=== PATIENT | female | born 2000 | race Caucasian/White ===

== ENCOUNTER 2023-04-15 15:44 | Emergency (ER) | payer BC, SELFPAY ==
[2023-04-15 15:48] VITALS: BP 132/80
[2023-04-15 18:33] LABS: % Basophils 0.5 % (0-2); % Eosinophils 0.5 % (0-6); % Immature Granulocytes 0.2 % (0-0.5); % Lymphocytes 30.7 % (20.5-51.1); % Monocytes 5.6 % (1.7-9.3); % Neutrophils 62.5 % (42.2-75.2); Absolute Basophils 0.1 10^3/uL (0-0.2); Absolute Eosinophils 0.1 10^3/uL (0-0.7); Absolute Lymphocytes 4.1 10^3/uL (1.2-3.4); Absolute Monocytes 0.7 10^3/uL (0.1-0.6); Absolute Neutrophils 8.3 10^3/uL (1.4-6.5); Hematocrit 36.7 % (37.0-47.0); Hemoglobin 12.9 g/dL (12.0-16.0); Mean Corp Hgb Conc. 35.1 g/dL (33.0-37.0); Mean Corpuscular Hgb 30.6 pg (27.0-31.0); Mean Corpuscular Volume 87.2 fL (81.0-99.0); Mean Platelet Volume 9.6 fL (7.4-10.4); Nucleated Red Blood Cells % 0 %; Platelet Count 414 10^3/uL (130-400); Red Blood Cell Count 4.21 10^6/uL (4.20-5.40); Red Cell Dist. Width 13.1 % (11.5-14.5); White Blood Cell Count 13.2 10^3/uL (4.8-10.8)
[2023-04-15 18:43] LABS: HCG, Serum Qualitative Screen Negative
[2023-04-15 18:45] LABS: Albumin 4.4 g/dl (3.5-5.0); Chloride 102 mmol/L (98-107); Potassium 4.1 mmol/L (3.5-5.1); Sodium 134 mmol/L (135-145)
[2023-04-15 18:55] VITALS: BP 125/86
[2023-04-15 18:56] LABS: ALT (SGPT) 24 U/L (0-35); AST (SGOT) 39 U/L (14-36); Alkaline Phosphatase 110 U/L (38-126); Blood Urea Nitrogen 5 mg/dl (7-17); Calcium 9.8 mg/dl (8.4-10.2); Carbon Dioxide 22 mmol/L (22-30); Glucose 84 mg/dl (70-99); Total Bilirubin 0.5 mg/dl (0.2-1.3); Total Protein 7.6 g/dl (6.3-8.2); eGFR > 60.00
[2023-04-15 19:32] LABS: Urine Albumin Negative (Neg - Trace); Urine Bilirubin Negative (Negative); Urine Character Clear (Clear); Urine Color Yellow; Urine Glucose Negative (Negative); Urine Ketone Negative (Negative); Urine Leukocyte 1+ (Negative); Urine Nitrite Negative (Negative); Urine Occult Blood Negative (Negative); Urine Specific Gravity 1.015 (<1.030); Urine Urobilinogen Negative (Neg - 1+)
[2023-04-15 19:41] LABS: Urine Red Blood Cell None Seen /HPF (0-2); Urine Squamous Cell >30 /LPF (Few)
[2023-04-15] MEDS: ADACEL 0.5 ML IM (21:27)
--- NOTE | 2023-04-15 21:41 | ED.GENMED ---
History of Present Illness
General
Chief Complaint: Musculo-Skeletal Complaint
Source: patient
Exam Limitations: none
Time Seen by Provider: 04/15/23 17:10
Travel History
Have you had any contact with someone who has COVID-19?: No
Do you have any symptoms of coronavirus? Fever > 100 degrees, chills, cough, shortness of breath, sore throat, loss of taste or smell, muscle aches, or headache?: No
History of Present Illness
History of Present Illness:
Patient was working with horse when it reared up. Hoof hit her on back of head and on rigt side of abdomen. Incident occurred today. Sustained a small abrasion to scalp, bruising to right abd.
Past History
Past History
ED Past Medical History: None
ED Past Surgical History: None
Review of Systems
Review of Systems
Allergies reviewed?: Yes
All Other Systems: ROS reviewed and negative except as documented in HPI and ROS
Constitutional: Reports no symptoms
EENT: Reports no symptoms
Respiratory: Reports no symptoms
Cardiac: Reports no symptoms
ABD/GI: Reports other (bruising right ant abdominal wall)
: Reports no symptoms
Musculoskeletal: Reports no symptoms
Skin: Reports other (abrasion right occipital scalp)
Neurological: Reports no symptoms
Psychiatric: Reports no symptoms
Phy Exam
General Physical Exam
General Presentation: well appearing and no apparent distress
General age: appears stated age
General Skin: warm and dry
General Habitus: normal
Pulmonary Exam
Pulmonary Exam: no respiratory distress and chest non tender
Gastrointestinal Exam
Gastrointestinal Exam: normal bowel sounds, soft, no organomegaly, no pulsatile mass, non distended and no cva tenderness
Palpation: left upper quadrant: Minimal tenderness, left lower quadrant: No tenderness, right upper quadrant: No tenderness and right lower quadrant: No tenderness
Deann Coma Scale
Eye Opening: Spontaneous
Verbal Response: Oriented
Motor Response: Obeys Commands
GCS Total Score: 15
Musculoskeletal Exam
Musculoskeletal Exam: full ROM and neuro vasc intact
Skin Exam
Skin Exam: normal color and warm/dry
Psychiatric Exam
Psychiatric Exam: normal mood/affect
Course
Orders/Labs/Results
Orders:
Orders
04/15/23 17:55
CT Abd/pel W Iv Cont (trauma) Urgent
Comment:
Reason For Exam: kicked by horse right abd.
Test Result ONCE
04/15/23 18:13
Complete Blood Count/With Diff Urgent
Comprehensive Metabolic Panel Urgent
HCG, Serum Qualitative Screen Urgent
04/15/23 19:16
Urinalysis Urgent
Date Specimen was Collected: 04/15/23
Time Specimen was Collected: 19:11
Urine Microscopic Urgent
Date Specimen was Collected: 04/15/23
Time Specimen was Collected: 19:11
04/15/23 21:21
Tetanus/Diphth/Acelpertussis [Adacel] 0.5 ml IM .ONCE ONE
Abnormal Lab Results
04/15/23 04/15/23
18:13 19:16
WBC 13.2 H 10^3/uL
(4.8-10.8)
Hct 36.7 L %
(37.0-47.0)
Plt Count 414 H 10^3/uL
(130-400)
Absolute Neuts (auto) 8.3 H 10^3/uL
(1.4-6.5)
Absolute Lymphs (auto) 4.1 H 10^3/uL
(1.2-3.4)
Absolute Monos (auto) 0.7 H 10^3/uL
(0.1-0.6)
Sodium 134 L mmol/L
(135-145)
BUN 5 L mg/dl
(7-17)
Creatinine 0.4 L mg/dL
(0.6-1.0)
AST 39 H U/L
(14-36)
Ur Leukocyte Esterase 1+ A
(Negative)
Urine WBC 6-10 A /HPF
(0-5)
04/15/23 18:13
04/15/23 18:13
Vital Signs
Initial and Last Documented VS:
Initial Vital Signs
Temp Pulse Resp BP Pulse Ox
97.8 F 86 16 132/80 99
04/15/23 15:48 04/15/23 15:48 04/15/23 15:48 04/15/23 15:48 04/15/23 15:48
Last Documented Vital Signs
Temp Pulse Resp BP Pulse Ox
97.8 F 79 20 125/86 98
04/15/23 15:48 04/15/23 18:55 04/15/23 18:55 04/15/23 18:55 04/15/23 18:55
*Radiology
Radiology exam reviewed: radiology read reviewed
*Pulse Oximetry
Patient hypoxic: no
*Critical Care Note
Total Time (30-74mins, 75-104mins- exclusive of procedures): Not Applicable
ED Attending Note
-
Portions of this chart may have been created with voice recognition software.� Occasional wrong word or��sound alike� substitutions may have occurred due to the inherent limitations of voice recognition software.
Discharge Plan
Departure
Patient Disposition: Home (Routine Discharge)
Date of Disposition: 04/15/23
Time of Disposition: 21:38
Patient with high blood pressure during this ER visit?: No
Condition: Good
Discharge Problem:
Abdominal wall contusion, Head injury
Instructions: Head Injury in Adults (DC), Contusion (DC), Ibuprofen, Using Cold for Pain
Referrals:
Milan Pastrana MD [Family Provider] -
Activity Restrictions/Additional Instructions:
Follow up with your health center in the AM
Interventions
Interventions:
*Risk Screen - Suicide Last Done: 04/15/23 19:01
*General Assessment Last Done: 04/15/23 19:01
*Neglect/Abuse Screening Last Done: 04/15/23 19:01
*ED COVID-19 Vaccine History Last Done: 04/15/23 19:01
*Nursing Disposition Last Done: 04/15/23 21:58
ED-Musculoskeletal Assessment Last Done: 04/15/23 19:01
Discharge Date and Time
Discharge Date/Time: 04/15/23 21:59
== END 2023-04-15 21:59 | disposition home or self-care (01) ==
LOC: EMR 15:44
PROVIDERS: Nurse Practitioner; EMERGENCY PHYSICIAN Emergency Medicine; FAMILY PHYSICIAN Family Medicine
DX: S30.1XXA Contusion of abdominal wall, initial encounter (principal); S09.90XA Unspecified injury of head, initial encounter; S00.01XA Abrasion of scalp, initial encounter; W55.12XA Struck by horse, initial encounter; Y93.K9 Activity, other involving animal care
CPT/HCPCS: 99285; 90471; 74177; 80053; 81003; 81015; 84703; 85025; 90715; Q9967